=== PATIENT | female | born 1945 | race Caucasian/White ===

== ENCOUNTER → 2023-11-16 06:18 | Day surgery (SDC) | payer MEDICARE, OTHER, SELFPAY | LOC: GI 06:18 | PROVIDERS: ATTENDING PHYSICIAN Internal Medicine Gastroenterology; FAMILY PHYSICIAN Internal Medicine Geriatric Medicine | DX: Z12.11 Encounter for screening for malignant neoplasm of colon (principal); K57.30 Diverticulosis of large intestine without perforation or abscess without bleeding; K64.8 Other hemorrhoids; D12.2 Benign neoplasm of ascending colon; Z86.010 Personal history of colon polyps | CPT/HCPCS: 45385; 88305 ==

== ENCOUNTER → 2024-04-19 13:10 | Outpatient (REF) | payer MEDICARE, OTHER, SELFPAY | LOC: WDC 13:10 | PROVIDERS: ATTENDING PHYSICIAN Internal Medicine | DX: Z12.39 Encounter for other screening for malignant neoplasm of breast (principal); Z12.31 Encounter for screening mammogram for malignant neoplasm of breast | CPT/HCPCS: 77063; 77067 ==

== ENCOUNTER 2024-05-14 22:09 | Emergency (ER) | payer MEDICARE, OTHER, SELFPAY ==
[2024-05-14 22:21] VITALS: BP 104/52
[2024-05-14 22:41] LABS: % Basophils 0.1 % (0-2); % Eosinophils 0.5 % (0-6); % Immature Granulocytes 0.3 % (0-0.5); % Lymphocytes 7.2 % (20.5-51.1); % Monocytes 4.3 % (1.7-9.3); % Neutrophils 87.6 % (42.2-75.2); Absolute Eosinophils 0.1 10^3/uL (0-0.7); Absolute Lymphocytes 0.7 10^3/uL (1.2-3.4); Absolute Monocytes 0.4 10^3/uL (0.1-0.6); Absolute Neutrophils 8.5 10^3/uL (1.4-6.5); Hematocrit 39.7 % (37.0-47.0); Hemoglobin 13.6 g/dL (12.0-16.0); Mean Corp Hgb Conc. 34.3 g/dL (33.0-37.0); Mean Corpuscular Hgb 29.5 pg (27.0-31.0); Mean Corpuscular Volume 86.1 fL (81.0-99.0); Nucleated Red Blood Cells % 0 %; Platelet Count 204 10^3/uL (130-400); Red Blood Cell Count 4.61 10^6/uL (4.20-5.40); Red Cell Dist. Width 12.4 % (11.5-14.5); White Blood Cell Count 9.7 10^3/uL (4.8-10.8)
[2024-05-14 22:58] LABS: ALT (SGPT) 17 U/L (0-35); AST (SGOT) 28 U/L (14-36); Albumin 4.6 g/dl (3.5-5.0); Alkaline Phosphatase 70 U/L (38-126); Blood Urea Nitrogen 30 mg/dl (7-17); Calcium 9.6 mg/dl (8.4-10.2); Carbon Dioxide 29 mmol/L (22-30); Chloride 98 mmol/L (98-107); Glucose 155 mg/dl (70-99); Potassium 4.1 mmol/L (3.5-5.1); Sodium 138 mmol/L (135-145); Total Bilirubin 0.5 mg/dl (0.2-1.3); Total Protein 7.3 g/dl (6.3-8.2); eGFR 57.66
[2024-05-14 23:03] LABS: Troponin I < 0.012 ng/ml
[2024-05-14 23:50] VITALS: BP 114/45
[2024-05-14] MEDS: ZOFRAN ODT (ORALLY DISINTEGRATING) 4 MG PO (23:54)
[2024-05-15] VITALS: BP 104/45
[2024-05-15 01:00] VITALS: BP 111/49
--- NOTE | 2024-05-15 01:09 | ED.GENMED ---
History of Present Illness
General
Chief Complaint: Chest Pain
Source: patient and family (Daughter)
Exam Limitations: none
Time Seen by Provider: 05/15/24 01:04
Nursing documentation reviewed up to this point in time: agreed with
History of Present Illness
History of Present Illness:
This is a 79-year-old woman with history of hyperlipidemia, resides at home with family. She began with nausea, vomiting around 8 PM tonight. Daughter did give her a dose of Zofran but patient vomited approximately 10 minutes afterwards. She
continued with nausea and an additional episode of vomiting around 9 PM and then developed lower substernal nonradiating chest pain.
Several family members with similar GI illness over the past week. She denies coughing or shortness of breath, no abdominal pain or back pain, no neck pain, no weakness or numbness, no dizziness nor palpitations.
Upon arrival to the ED continuing with significant nausea thus was given a dose of Zofran ODT and since that time nausea has resolved and chest pain has resolved as well.
She is currently thirsty and eager to be discharged to home.
She has no history of CAD nor hypertension. No history of thromboembolism nor risk factors for such.
She has had no diarrhea. No hematemesis.
Past History
Past History
ED Past Medical History: Hypercholesterolemia and Other (Osteoporosis)
ED Past Surgical History: None
Social History
Tobacco: Non-smoker
Alcohol: None
Personal:
Living: with family
Family History
Family History: Other (Noncontributory)
Phy Exam
Physical Exam
Physical Exam:
GENERAL: 79-year-old woman appears her stated age, awake and alert, pleasant, appears in no acute distress. Daughter is accompanying.
EYE: anicteric
NECK: Supple, nontender, no meningismus, no significant adenopathy.
ENT: oral mucosa is moist. No rhinorrhea.
CARDIAC: Regular rate and rhythm. no murmur.
LUNGS: Clear breath sounds bilaterally, no acute respiratory distress, no wheezes/rales/rhonchi
ABDOMEN: Soft, nondistended, without focal tenderness, no r/g, no cvat. normoactive BS.
NEUROLOGICAL: Alert and oriented x3, no focal neuro deficits.
SKIN: Warm and dry, normal color, skin intact. No rash.
MUSCULOSKELETAL: No C/C/E. peripheral pulses are full and equal b/l. No palpable tenderness.
PSYCH: Normal and appropriate interaction.
Scores
Heart Score for Chest Pain Patients
STEMI patient?: No
History: Slightly or Non-Suspicious
ECG: Nonspecific Repolarization
Age: >/= 65 years
Risk Factors: 1 or 2 Risk Factors
Troponin: </= Normal Limit
Heart Score for Chest Pain Patients: 4
Heart Score Risk: 20.3% MACE over next 6 weeks
Course
Orders/Labs/Results
Orders:
Orders
05/14/24 22:10
EKG [Electrocardiogram (*1)] Urgent
Reason for Study: Chest Pain
EKG- Treatment ONCE
05/14/24 22:31
Complete Blood Count/With Diff Urgent
Comprehensive Metabolic Panel Urgent
Troponin I Urgent
05/14/24 23:52
Ondansetron Orally Disint [Zofran Odt (Orally Disintegrating)] 4 mg PO NOW STA
Abnormal Lab Results
05/14/24
22:31
Absolute Neuts (auto) 8.5 H 10^3/uL
(1.4-6.5)
Absolute Lymphs (auto) 0.7 L 10^3/uL
(1.2-3.4)
Neutrophils % 87.6 H %
(42.2-75.2)
Lymphocytes % 7.2 L %
(20.5-51.1)
BUN 30 H mg/dl
(7-17)
Glucose 155 H mg/dl
(70-99)
05/14/24 22:31
05/14/24 22:31
Vital Signs
Initial and Last Documented VS:
Initial Vital Signs
Temp Pulse Resp BP Pulse Ox
97.8 F 94 26 104/52 98
05/14/24 22:21 05/14/24 22:21 05/14/24 22:21 05/14/24 22:21 05/14/24 22:21
Last Documented Vital Signs
Temp Pulse Resp BP Pulse Ox
97.8 F 87 18 111/49 99
05/14/24 22:21 05/15/24 01:00 05/15/24 01:00 05/15/24 01:00 05/15/24 01:00
MDM/Problems Addressed
Differential Diagnosis Includes:
Patient presents with acute nausea, vomiting this evening with progression to lower substernal chest pain, nonradiating.
Concern for GERD versus ACS. Aortic dissection is unlikely.
After an oral dose of Zofran she has had complete relief of nausea and no further chest pain.
EKG shows normal sinus rhythm at 100, terminal T wave inversion anteriorly otherwise unremarkable.
Labs are unremarkable including normal troponin.
It is reassuring that symptoms resolved after dose of Zofran.
I highly suspect acute GERD after vomiting. She has had no hematemesis, nothing to suggest Kate-Car tear.
Will trial oral fluids and if tolerated will discharge to home.
I have offered a prescription for Zofran ODT but daughter declines stating she has this at home.
Recommend limiting diet to clear liquids today, slowly advance as tolerated.
Prompt follow-up with PCP for recheck.
Chronic conditions affecting care: Other (Hyperlipidemia)
*Pulse Oximetry
Patient hypoxic: no
*EKG
Interpreted by ED Provider?: Yes
Rate: normal
Rhythm: sinus
[place]: normal axis
Interval: normal interval
QRS Pattern: normal QRS
Ischemia: non-specific ST changes
*[facility] Interpretation
Rate: normal
Interpretation: normal
Rhythm: sinus
*Critical Care Note
Total Time (30-74mins, 75-104mins- exclusive of procedures): Not Applicable
ED Attending Note
-
Portions of this chart may have been created with voice recognition software.� Occasional wrong word or��sound alike� substitutions may have occurred due to the inherent limitations of voice recognition software.
Discharge Plan
Departure
Patient Disposition: Home (Routine Discharge)
Date of Disposition: 05/15/24
Time of Disposition: 01:15
Patient with high blood pressure during this ER visit?: No
Condition: Good
Discharge Problem:
Acute gastroenteritis, acute GERD
Instructions: Viral gastroenteritis in adults, Clear Liquid Diet, Acid reflux and GERD in adults
Prescriptions:
No Action
atorvastatin 10 MG tablet
10 mg PO QPM
calcium carbonate [Calcium 500] 500 mg calcium (1,250 mg) Tablet
500 mg PO DAILY
ascorbic acid (vitamin C) [Vitamin C] 500 mg Tablet
500 mg PO DAILY
ondansetron 4 mg Tablet,Disintegrating
4 mg PO Q8HPRN PRN (Reason: nausea)
cholecalciferol (vitamin D3) [Vitamin D3] 25 mcg (1,000 unit) Tablet
25 mcg PO DAILY
Referrals:
Juan Jose Swan MD [Family Provider] - Call in 1-3 days for appt
Interventions
Interventions:
*Risk Screen - Suicide Last Done: 05/14/24 22:21
*Neglect/Abuse Screening Last Done: 05/14/24 22:21
*Nursing Disposition Last Done: 05/15/24 01:20
OC-Binipn-Gcsmfzojef Assessment Last Done: 05/14/24 23:57
ED- Cardiac Assessment Last Done: 05/14/24 23:57
Discharge Date and Time
Discharge Date/Time: 05/15/24 01:21
Print Language: DIVEHI
== END 2024-05-15 01:21 | disposition home or self-care (01) ==
LOC: EMR 22:09
PROVIDERS: Emergency Medicine; EMERGENCY PHYSICIAN Emergency Medicine; FAMILY PHYSICIAN Internal Medicine Geriatric Medicine
DX: K52.9 Noninfective gastroenteritis and colitis, unspecified (principal); K21.9 Gastro-esophageal reflux disease without esophagitis; E78.00 Pure hypercholesterolemia, unspecified
CPT/HCPCS: 99284; 80053; 84484; 85025; 93005

== ENCOUNTER → 2024-05-30 08:09 | Outpatient (REF) | payer MEDICARE, OTHER, SELFPAY | LOC: RAD 08:09 | PROVIDERS: ATTENDING PHYSICIAN Internal Medicine Geriatric Medicine | DX: E78.2 Mixed hyperlipidemia (principal); G25.0 Essential tremor; E55.9 Vitamin D deficiency, unspecified; K59.09 Other constipation; Z78.0 Asymptomatic menopausal state; Z13.31 Encounter for screening for depression; Z23 Encounter for immunization | CPT/HCPCS: 77080 ==

== ENCOUNTER → 2025-04-24 08:30 | Outpatient (REF) | payer MEDICARE, OTHER, SELFPAY | LOC: WDC 08:30 | PROVIDERS: ATTENDING PHYSICIAN Internal Medicine Geriatric Medicine | DX: Z12.31 Encounter for screening mammogram for malignant neoplasm of breast (principal); Z12.39 Encounter for other screening for malignant neoplasm of breast | CPT/HCPCS: 77063; 77067 ==